=== PATIENT | male | born 1985 | race Caucasian/White ===

== ENCOUNTER 2016-08-08 20:29 | Emergency (ER) | payer BC ==
[2016-08-08 20:46] VITALS: BP 138/75
--- NOTE | 2016-08-08 22:50 | EDM.PDOC ---
ED HPI GENERAL MEDICAL PROBLEM - General Chief Complaint: Skin Complaint Stated Complaint: INFECTION IN RT. ARM PIT Time Seen by Provider: 08/08/16 20:44 Source of Information: Reports: Patient, RN Notes Reviewed History Limitations: Reports: No Limitations - History of Present Illness INITIAL COMMENTS - FREE TEXT/NARRATIVE: The patient states that he has had some painful lumps in his right axilla for the past few days. No drainage. No recent fever. He has been applying Neosporin. No prior similar symptoms. The patient's PCP is Dr. Perez from [place], [place]. Right Arm Pain Score (Numeric/FACES): 5 - Related Data Allergies Allergy/AdvReac Type Severity Reaction Status Date / Time Iodinated Contrast- Oral and Allergy Rash Verified 08/08/16 20:44 IV Dye Penicillins Allergy Rash Verified 08/08/16 20:44 Home Meds: Home Meds . [No Known Home Meds] 08/08/16 [History] Past Medical History - Infectious Disease History Infectious Disease History: Reports: MRSA Other Infectious Disease History: Tested and cleared after antibiotics - Past Surgical History HEENT Surgical History: Reports: Oral Surgery ([place] teeth extraction) Social & Family History - Tobacco Use Smoking Status *Q: Current Every Day Smoker Years of Tobacco use: 12 Packs/Tins Daily: 0.5 - Alcohol Use Alcohol Use History: Yes Days Per Week of Alcohol Use: 1 Number of Drinks Per Day: 3 Total Drinks Per Week: 3 Alcohol Use Frequency: Socially - Recreational Drug Use Recreational Drug Use: No - Living Situation & Occupation Living situation: Reports: Single, Alone Occupation: Employed ([employer]) ED ROS GENERAL - Review of Systems Review Of Systems: See Below Constitutional: Reports: No Symptoms HEENT: Reports: No Symptoms Respiratory: Reports: No Symptoms Cardiovascular: Reports: No Symptoms Endocrine: Reports: No Symptoms GI/Abdominal: Reports: No Symptoms : Reports: No Symptoms Musculoskeletal: Reports: No Symptoms Skin: Reports: No Symptoms Neurological: Reports: No Symptoms Psychiatric: Reports: No Symptoms Hematologic/Lymphatic: Reports: No Symptoms Immunologic: Reports: No Symptoms ED EXAM, SKIN/RASH Exam: See Below Exam Limited By: No Limitations General Appearance: Alert, WD/WN, No Apparent Distress Skin: Warm, Dry, Intact, Normal Color, No Rash, Other (There are 2 small erythematous lumps in the patient's right axilla. They're tender to palpation. Neither of the lumps are pointing. Both are firm, nonfluctuant.) Course - Vital Signs Last Recorded V/S: Last Vital Signs Temp 36.6 C 08/08/16 20:44 Pulse 87 08/08/16 20:44 Resp 18 08/08/16 20:44 BP 138/75 08/08/16 20:44 Pulse Ox 98 08/08/16 20:44 - Re-Assessments/Exams Free Text/Narrative Re-Assessment/Exam: 08/08/16 22:48 The patient has 2 relatively small erythematous lumps in his right axilla, most likely ingrown hairs. Both are firm, and not fluctuant, therefore do not need I& D at this time. I'm recommending warm compresses and referral to a surgeon for possible I&D. Departure - Departure Time of Disposition: 22:48 Disposition: Home, Self-Care 01 Condition: Good Clinical Impression: Ingrown hair - Discharge Information Referrals: PCP,None [Primary Care Provider] - Arleth Vera MD [Physician] - Forms: ED Department Discharge Additional Instructions: You were seen in the emergency room for two tender lumps in tour right armpit. On examination, it appears that you have ingrown hairs. We are recommending that you apply a warm compress to your armpit for 15 minutes , 4-5 times a day. Follow-up with the surgeon Dr. Arleth Vera later this week or early next, for possible incision and drainage. If any other problems, please do not hesitate to return to the ER.
== END 2016-08-08 22:30 | disposition home or self-care (01) ==
LOC: JD.ED 20:29
DX: L73.1 Pseudofolliculitis barbae (principal); F17.210 Nicotine dependence, cigarettes, uncomplicated; Z88.0 Allergy status to penicillin; Z91.041 Radiographic dye allergy status
CPT/HCPCS: 99282; 99283